=== PATIENT | male | born 1965 | race Caucasian/White ===

== ENCOUNTER 2023-12-04 13:29 | Emergency (ER) | payer MEDICAID ==
[~2023-12-04] VITALS: Ht 167.6 cm; Wt 68.2 kg
[2023-12-04 13:58] VITALS: TEMP 99.2
[2023-12-04 15:55] LABS: BILIRUBIN,URINE NEGATIVE (Neg); CLARITY,URINE CLEAR (Clear); COLOR,URINE YELLOW (Yellow); GLUCOSE, URINE NEGATIVE (Neg); KETONES,URINE TRACE mg/dl (Neg); LEUKOCYTE ESTERASE ,URINE NEGATIVE (Neg); NITRITES, URINE NEGATIVE (Neg); OCCULT BLOOD,URINE NEGATIVE (Neg); PROTEIN,URINE NEGATIVE (Neg); UROBILINOGEN,URINE 0.2 E.U/dL (0.2-1.0)
[2023-12-04 15:58] LABS: UA COLLECTION TYPE URINAL
[2023-12-04] MEDS ORDERED: DET2LAC PO (17:04)
[2023-12-04] MEDS ORDERED: oxybutynin 5mg tablet PO SCH (17:07)
[2023-12-04] MEDS: tolterodine 2mg SR capsule (24hr) PO SCH (18:27)
[2023-12-04 18:42] VITALS: BP 133/78; PULSE 89; RESP 18; O2SAT 96
== END 2023-12-04 18:46 | disposition home or self-care (01) ==
LOC: ER 13:31
DX: N39.0 Urinary tract infection, site not specified (principal); R53.1 Weakness; N23 Unspecified renal colic; Z88.1 Allergy status to other antibiotic agents
CPT/HCPCS: 81003; 99283